=== PATIENT | male | born 1950 | race African-American/Black ===

== ENCOUNTER 2017-09-16 13:20 | Inpatient (IN) | payer OTHER ==
[~2017-09-16] VITALS: Ht 172.7 cm; Wt 86.3 kg
[~2017-09-16 13:20] MED LIST: ANAPROX DS550 M1 PO; ASPIR-LOW81 MG PO; CARVEDILOL25 MG PO; FLEXERIL5 MG PO; FUROSEMIDE20 MG PO; HYDROCHLOROTHIA25 MG PO; NIFEDIPINE ER30 MG PO
[2017-09-16 14:11] LABS: HEMATOCRIT 33.7 % (38.0-50.0); HEMOGLOBIN 11.3 G/DL (12.5-16.6); MCH 30.3 PG (29.0-34.0); MCHC 33.5 G/DL (30.0-36.0); MCV 90.3 FL (86-99); PLATELET COUNT 215 K/uL (156-360); RBC DIS.WIDTH-CV 14.3 % (11.8-14.6); RBC DIS.WIDTH-SD 47.3 % (39-53); RED BLOOD COUNT 3.73 M/uL (4.00-5.50)
[2017-09-16 14:14] LABS: CHLORIDE 111 mEq/L (99-109); SODIUM 142 mEq/L (136-147)
[2017-09-16 14:16] LABS: GLUCOSE 133 mg/dL (70-99)
[2017-09-16 14:20] LABS: CREATININE 1.7 mg/dL (0.6-1.3); GFR ESTIMATE (CALCULATED) 52 mL/min/ (58.99-99999); UREA NITROGEN (BUN) 26 mg/dL (9-23)
[2017-09-16 14:45] LABS: TROP-I INTERPRETATION NEGATIVE; TROPONIN-I 0.05 ng/mL (0.0-0.30)
[2017-09-16] MEDS ORDERED: ADULT ASPIRIN R81 MG PO (20:45)
[2017-09-16 22:07] VITALS: BP 184/123
[2017-09-17 00:04] VITALS: BP 161/109
[2017-09-17 04:48] VITALS: BP 192/107
[2017-09-17 06:08] VITALS: BP 173/96
[2017-09-17 06:13] LABS: CHLORIDE 107 MEQ/L (99-109); CREATININE 1.6 MG/DL (0.6-1.3); GFR ESTIMATE (CALCULATED) 56 mL/min/ (58.99-99999); GLUCOSE 120 mg/dL (70-99); MAGNESIUM 2.3 mg/dl (1.3-2.7); PHOSPHORUS 4.1 mg/dL (2.5-4.9); POTASSIUM 4.2 MEQ/L (3.7-5.4); SODIUM 143 MEQ/L (136-147); UREA NITROGEN (BUN) 30 mg/dL (9-23)
[2017-09-17 09:00] VITALS: BP 154/82
[2017-09-17 11:38] LABS: TROP-I INTERPRETATION NEGATIVE; TROPONIN-I 0.04 ng/mL (0.0-0.30)
[2017-09-17 12:00] VITALS: BP 143/81
[2017-09-17 21:00] VITALS: BP 139/83
[2017-09-18 00:20] VITALS: BP 134/89
[2017-09-18 03:45] VITALS: BP 128/81
[2017-09-18 06:13] LABS: CHLORIDE 106 MEQ/L (99-109); CREATININE 1.4 MG/DL (0.6-1.3); GFR ESTIMATE (CALCULATED) > 59 mL/min/ (58.99-99999); GLUCOSE 112 mg/dL (70-99); POTASSIUM 3.5 MEQ/L (3.7-5.4); SODIUM 142 MEQ/L (136-147); UREA NITROGEN (BUN) 25 mg/dL (9-23)
[2017-09-18 07:57] VITALS: BP 133/88
[2017-09-18 11:23] VITALS: BP 129/84
[2017-09-18] MEDS ORDERED: NIFEDIPINE ER30 MG PO (13:28)
[2017-09-18] MEDS ORDERED: LOSARTAN POTASS25 MG PO (13:28)
[2017-09-18] MEDS ORDERED: LASIX20 MG PO (13:28)
[2017-09-18] MEDS ORDERED: CARVEDILOL25 MG PO (13:28)
== END 2017-09-18 16:04 | disposition home or self-care (01) | DRG 291 ==
LOC: EME 13:20 → EDOF 21:03 → 4EAST 21:03 → ENRESERV 21:04 → 4EAST 22:06 → ENPENDDIS 09-18 → 4EAST 09-18 16:04
PROVIDERS: Emergency Medicine; Family Medicine; Physician Assistant Medical
DX: I13.0 Hypertensive heart and chronic kidney disease with heart failure and stage 1 through stage 4 chronic kidney disease, or unspecified chronic kidney disease (principal); I50.23 Acute on chronic systolic (congestive) heart failure; N18.3 Chronic kidney disease, stage 3 (moderate); Z87.891 Personal history of nicotine dependence; I42.0 Dilated cardiomyopathy; H91.90 Unspecified hearing loss, unspecified ear; Z91.19 Patient's noncompliance with other medical treatment and regimen; E87.6 Hypokalemia; E27.8 Other specified disorders of adrenal gland; Z79.82 Long term (current) use of aspirin
CPT/HCPCS: 71046; 71275; 80048; 81003; 82570; 83735; 84100; 84156; 84484; 85027; 85379; 93005; 93306; 94640; 99281; 99285; J0360; J1644; J1940; J7030